=== PATIENT | female | born 1985 | race Caucasian/White ===

== ENCOUNTER 2016-08-02 07:49 | Emergency (ER) | payer OTHER ==
[2016-08-02] MEDS ORDERED: KETOROLAC 60 MG/2 ML VIAL IM STA (08:23)
[2016-08-02] MEDS ORDERED: DEXAMETHASONE 10 MG/ML VIAL PO STA (08:23)
[2016-08-02] MEDS ORDERED: KETOROLAC 60 MG/2 ML VIAL ONE (08:37)
[2016-08-02] MEDS ORDERED: CHERRY SYRUP 10 ML UDC PO ONE (08:37)
[2016-08-02] MEDS ORDERED: DEXAMETHASONE 10 MG/ML VIAL ONE (08:37)
[2016-08-02] MEDS ORDERED: ONDANSETRON ODT 4 MG TABLET TL STA (09:19)
[2016-08-02] MEDS ORDERED: HYDROmorphone 1 MG/ML SYRINGE IM STA (09:19)
[2016-08-02] MEDS ORDERED: HYDROmorphone 1 MG/ML SYRINGE ONE (09:30)
[2016-08-02] MEDS ORDERED: ONDANSETRON ODT 4 MG TABLET ONE (09:30)
== END 2016-08-02 10:24 | disposition home or self-care (01) ==
DX: M54.5 Low back pain (principal); M62.830 Muscle spasm of back; X50.0XXA Overexertion from strenuous movement or load, initial encounter; X50.1XXA Overexertion from prolonged static or awkward postures, initial encounter; Y93.89 Activity, other specified
CPT/HCPCS: 96372; 99283; A9270; J1170; Q0162

== ENCOUNTER 2016-08-09 14:06 | Outpatient (CLI) | payer OTHER | END 2016-08-09 14:07 | disposition home or self-care (01) | DX: M51.37 Other intervertebral disc degeneration, lumbosacral region (principal) ==

== ENCOUNTER 2016-09-29 13:15 | Outpatient (CLI) | payer OTHER | END 2016-09-29 13:16 | DX: F90.0 Attention-deficit hyperactivity disorder, predominantly inattentive type (principal) ==

== ENCOUNTER 2016-10-28 13:40 | Outpatient (CLI) | payer OTHER ==
[2016-10-30 07:48] LABS: AMPHETAMINES NEGATIVE ng/mL (< 500); BARBITURATES NEGATIVE ng/mL (< 300); BENZODIAZEPINES NEGATIVE ng/mL (< 100); CREATININE 82.3 mg/dL (>= 20.0); MARIJUANA METABOLITE NEGATIVE ng/mL (< 20); MEDMATCH AMPHETAMINES CONSISTENT (-); MEDMATCH BARBITURATES CONSISTENT (-); MEDMATCH BENZODIAZEPINES CONSISTENT (-); MEDMATCH COCAINE METAB CONSISTENT (-); MEDMATCH MARIJUANA METAB CONSISTENT (-); MEDMATCH METHADONE METAB INCONSISTENT (()); MEDMATCH OPIATES CONSISTENT (-); MEDMATCH OXYCODONE CONSISTENT (-); MEDMATCH PHENCYCLIDINE CONSISTENT (-); METHADONE METABOLITE NEGATIVE ng/mL (< 100); OPIATES NEGATIVE ng/mL (< 100); OXIDANT NEGATIVE mcg/mL (< 200); PHENCYCLIDINE NEGATIVE ng/mL (< 25); PRESCRIBED DRUG 1 Methadone (())
== END 2016-10-28 13:41 | disposition home or self-care (01) ==
LOC: LAB.R 13:40
PROVIDERS: ATTEND Nurse Practitioner Family
DX: F90.0 Attention-deficit hyperactivity disorder, predominantly inattentive type (principal)
CPT/HCPCS: 80307

== ENCOUNTER 2017-07-13 19:09 | Outpatient (CLI) | payer OTHER ==
--- NOTE | 2017-07-14 13:45 | Ultrasound Report ---
PELVIC ULTRASOUND: 07/14/2017 CLINICAL INDICATION: Polycystic ovarian syndrome. TECHNIQUE: Transabdominal pelvic ultrasound performed for global evaluation. Transvaginal pelvic ultrasound performed for detailed evaluation. Real-time scanning performed and static images obtained. FINDINGS: The uterus is anteverted, measuring 6.8 x 3.9 x 3.0 cm. The endometrium measures 3 mm. No focal myometrial lesion is present. The ovaries are unremarkable, with the right measuring 2.4 x 1.9 x 1.5 cm, and the left measuring 3.3 x 2.5 x 1.9 cm. A left paraovarian cyst is incidentally noted, measuring 1.4 cm. No free fluid is present. IMPRESSION: INCIDENTAL LEFT PARAOVARIAN CYST. TD: 07/14/2017 13:45
== END 2017-07-13 19:10 | disposition home or self-care (01) ==
LOC: DI 19:09
PROVIDERS: ATTEND Internal Medicine
DX: E28.2 Polycystic ovarian syndrome (principal)
CPT/HCPCS: 76830; 76856